=== PATIENT | male | born 1965 | race Hispanic/Latino ===

== ENCOUNTER 2017-08-05 07:31 | Emergency (ER) | payer OTHER, SELFPAY ==
[~2017-08-05 07:31] MED LIST: CEPH500B PO; TYL3 PO
[2017-08-05] MEDS ORDERED: LIDOCAINE 1%-EPI 1:100,000 20 ML VIAL IJ ONE (09:16)
[2017-08-05] MEDS ORDERED: MORPHINE SULFATE 4 MG/1ML SYG ONE (09:42)
[2017-08-05] MEDS ORDERED: ONDANSETRON ODT 4 MG TAB ONE (09:42)
[2017-08-05] MEDS ORDERED: MORPHINE SULFATE 2 MG/ML 1ML SYG ONE (10:52)
[2017-08-05] MEDS ORDERED: CLINDAMYCIN 600 MG/D5% WATER 50 ML IV ONE (11:12)
== END 2017-08-05 12:52 | disposition home or self-care (01) ==
LOC: EDH 07:31
DX: L02.215 Cutaneous abscess of perineum (principal)
CPT/HCPCS: 10061; 96365; 96375; 96376; 99284; J2270; J3490 ×2; 56405

== ENCOUNTER 2017-08-07 09:04 | Emergency (ER) | payer SELFPAY | END 2017-08-07 09:54 | disposition home or self-care (01) | LOC: EDH 09:04 | DX: Z48.01 Encounter for change or removal of surgical wound dressing (principal) | CPT/HCPCS: 99281 ==